=== PATIENT | female | born 1985 | race Caucasian/White ===

== ENCOUNTER 2018-05-15 18:01 | Emergency (ER) | payer OTHER, SELFPAY ==
[2018-05-15 18:18] VITALS: BP 129/96; PULSE 95; RESP 15; TEMP 36.8; O2SAT 98; BMI 33.2
--- NOTE | 2018-05-15 18:21 | DI.RAD.S_ITS ---
PROCEDURE: XR RIBS RT MIN 3V W CXR 1V INDICATIONS: fell onto right ribs TECHNIQUE: 2 views of the right ribs were acquired, along with a single view chest. COMPARISON: None. FINDINGS: Surgical changes and devices: None. Bones and chest wall: No fractures or dislocations. No suspicious bony lesions. Overlying soft tissues appear unremarkable. Lungs and pleura: No pleural effusions or pneumothorax. Lungs appear clear. Mediastinum: Mediastinal contours appear normal. Heart size is normal. IMPRESSION: No obvious displaced right rib fracture. No acute cardiopulmonary pathology. Dictated by: Bradley Gonzalez M.D. on 05/15/2018 at 19:00 Approved by: Bradley Gonzalez M.D. on 05/15/2018 at 19:00
--- NOTE | 2018-05-15 18:44 | ED_ITS ---
HPI - Fall General Chief Complaint: Fall Stated Complaint: FELL CRACK RIB RT SIDE Time Seen by Provider: 05/15/18 18:37 Source: patient Mode of arrival: ambulatory Limitations: no limitations History of Present Illness HPI Narrative: patient is a 33-year-old female who presents with right rib pain. She says she slipped and fell if this morning in the bathroom and landed on the toilet. It hurts every time she breathes moves. She did take some Tylenol earlier in the day as for pain but it did not help. MD complaint: fall Onset (ago): hour(s) Fall from: standing Fall witnessed: no Place fall occurred: home Loss of consciousness: none Prolonged down time: no Location of injury: chest Related Data Previous Rx's Medication Instructions Recorded tramadol 50 mg PO Q4-6H PRN #14 tab 05/15/18 Allergies Allergy/AdvReac Type Severity Reaction Status Date / Time No Known Drug Allergies Allergy Verified 05/15/18 18:18 Review of Systems Review of Systems ROS Unobtainable: All systems reviewed & are unremarkable except as noted in HPI and below Constitutional Denies chills, Denies fever(s), Denies lethargy and Denies weakness Cardiovascular Reports chest pain ( Right-sided), Denies irregular heart rhythm, Denies l ightheadedness, Denies palpitations and Denies orthopnea Respiratory Reports as per HPI and Reports pain on inspiration ( right side) Gastrointestinal Gastrointestinal: Denies abdominal pain, Denies change in bowel habits, Denies diarrhea, Denies nausea and Denies vomiting Musculoskeletal Denies back pain, Denies muscle weakness, Denies numbness and Denies tingling Integumentary/Breasts Denies pruritus, Denies erythema, Denies rash and Denies wounds Neurologic Denies numbness, Denies tingling and Denies weakness Endocrine Denies palpitations Exam Initial Vital Signs Initial Vital Signs: Vital Signs Temperature 98.2 F 05/15/18 18:18 Pulse Rate 95 H 05/15/18 18:18 Respiratory Rate 15 05/15/18 18:18 Blood Pressure 129/96 H 05/15/18 18:18 Pulse Oximetry 98 05/15/18 18:18 GENERAL: Patient appears in pain and bracing and splinting the right lower ribs. HEENT: Head atraumatic,EOMI, Neck is supple no vertebral tenderness CARDIOVASCULAR: Regular rate and rhythm without murmurs, rubs or gallops. RESPIRATORY: Breath sounds equal bilaterally, no wheezes rales or rhonchi. tender right lower rib 10 11 area no contusion no erythema. ABDOMEN: Soft, nontender. Normoactive bowel sounds all 4 quadrants. No guarding or rebound. EXTREMITIES: Normal range of motion, no clubbing or edema. Neurovascularly intact NEUROLOGICAL: Alert and oriented x4 SKIN: Warm, dry, no laceration, no petechiae, no rashes or lesions. [facility], [facility] Medical History Blood clotting disorder (Acute) History of multiple miscarriages (Acute) Social History Smoking Status: Current every day smoker Social History Smoking Status: Current every day smoker Course Orders Ordered: ED Orders 05/15/18 18:21 XR ribs RT min 3V w CXR1V Stat Discontinued Medications Ketorolac Tromethamine (Toradol) 60 mg IM NOW ONE Stop: 05/15/18 18:45 Last Admin: 05/15/18 19:01 Dose: 60 mg Vital Signs - 8 hr 05/15/18 18:18 05/15/18 19:39 Temperature 98.2 F 98.0 F Pulse Rate 95 H 82 Respiratory Rate 15 17 Blood Pressure 129/96 H Blood Pressure [Left Arm] 136/90 Pulse Oximetry 98 97 MDM - Fall Imaging Data rib XR: Radiologist's impression: PROCEDURE: XR RIBS RT MIN 3V W CXR 1V INDICATIONS: fell onto right ribs TECHNIQUE: 2 views of the right ribs were acquired, along with a single view chest. COMPARISON: None. FINDINGS: Surgical changes and devices: None. Bones and chest wall: No fractures or dislocations. No suspicious bony lesions. Overlying soft tissues appear unremarkable. Lungs and pleura: No pleural effusions or pneumothorax. Lungs appear clear. Mediastinum: Mediastinal contours appear normal. Heart size is normal. IMPRESSION: No obvious displaced right rib fracture. No acute cardiopulmonary pathology. Dictated by: Bradley Gonzalez M.D. on 05/15/2018 at 19:00 MDM Narrative Medical decision making narrative: X-ray does not show any fracture although patient is quite tender I suspect slight fracture. pain is slightly better after Toradol. She says that she does do well tramadol. Discharge Plan Departure Patient Disposition: Home Clinical Impression: Contusion of rib on right side Qualifiers: Encounter type: initial encounter Qualified Code(s): S20.211A - Contusion of right front wall of thorax, initial encounter Discharge Date/Time: 05/15/18 19:55 Interventions: ED Discharge Assessment Last Done: 05/15/18 20:09 Instructions: DI for Rib Contusion Activity Restrictions/Additional Instructions: *You have been diagnosed with right rib contusion *What to do: I do suspect possible of slight fracture just not seen on x-ray. New pillow to help splint for pain. Increase activity as tolerated. This can take 4-6 weeks to heal. *Continue to take medications as directed Motrin 600 mg every 6 hr only if needed for pain tramadol 1-2 tabs every 6 hr if needed for severe pain *Follow up with your primary care provider in 2-3 days *Return to ER if you should have increasing pain, shortness of breath, or any new, worsening or concerning symptoms Prescriptions: New tramadol 50 mg tablet 50 mg PO Q4-6H PRN (Reason: pain) Qty: 14 RF: 0
[2018-05-15] MEDS: KETOROLAC 60 MG/2 ML VIAL IM (19:01)
[2018-05-15 19:39] VITALS: BP 136/90; PULSE 82; RESP 17; TEMP 36.7; O2SAT 97
== END 2018-05-15 19:55 | disposition home or self-care (01) ==
PROVIDERS: Emergency Provider Emergency Medicine
DX: S20.211A Contusion of right front wall of thorax, initial encounter (principal); W01.0XXA Fall on same level from slipping, tripping and stumbling without subsequent striking against object, initial encounter
CPT/HCPCS: 71101; 96372; 99283; J1885

== ENCOUNTER 2020-01-22 21:24 | Emergency (ER) | payer OTHER, SELFPAY ==
[2020-01-22 21:35] VITALS: BP 144/78; PULSE 91; RESP 17; TEMP 37; O2SAT 99; BMI 32.5
[2020-01-22] MEDS: AMOXICILLIN/CLAV 875/125 MG 1 TAB PO (22:56)
--- NOTE | 2020-01-22 23:03 | PC.NURSE ---
Saw a white spot on front lower gums, pressed it and white drainage came out. Has history of dental issues after quitting smoking 4 months ago.
--- NOTE | 2020-01-23 01:44 | ED_ITS ---
HPI - Dental/Oral General Chief complaint: Dental/Oral Stated complaint: possible tooth abscess exploded Time Seen by Provider: 01/22/20 21:51 Source: patient Mode of arrival: Ambulatory Limitations: no limitations History of Present Illness HPI Narrative: 34F smoker with former history of smoking presents with a chief complaint of low were gum swelling and drainage of foul tasting, purulence material consistent with draining abscess. Patient denies any trouble swallowing, facial swelling nor systemic findings such as fever, chills nor nausea or vomiting. She denies any injury. She states that she has recently been in contact with a manager process improvement. She states that she started having dental problems soon as she stops smoking, which was very recently. Related Data Previous Rx's Medication Instructions Recorded tramadol 50 mg PO Q4-6H PRN #14 tab 05/15/18 amoxicillin-pot clavulanate 1 tab PO BID #20 tab 01/22/20 [Augmentin] Allergies Allergy/AdvReac Type Severity Reaction Status Date / Time No Known Drug Allergies Allergy Verified 05/15/18 18:18 Review of Systems Constitutional Constitutional: Denies chills, Denies fatigue, Denies fever(s), Denies frequent falls, Denies lethargy and Denies weakness Eyes Eyes: Denies change in vision, Denies eye discharge, Denies irritation and Denies loss of vision ENT Ears, Nose, Mouth, and Throat: Reports bleeding gums, Denies change in voice, Reports dental pain, Denies dizziness, Denies neck pain, Denies sore throat and Denies throat swelling Cardiovascular Cardiovascular: Denies chest pain, Denies irregular heart rhythm, Denies lightheadedness, Denies palpitations, Denies dyspnea, Denies dyspnea on exertion and Denies orthopnea Respiratory Respiratory: Denies cough, Denies dyspnea, Denies dyspnea on exertion and Denies wheezing Gastrointestinal Gastrointestinal: Denies abdominal pain, Denies change in bowel habits, Denies diarrhea, Denies nausea and Denies vomiting Musculoskeletal Musculoskeletal: Denies neck pain and Denies numbness Integumentary/Breasts Skin/Breast: Denies pruritus, Denies erythema, Denies rash and Denies wounds Neurologic Neurologic: Denies behavioral changes, Denies confusion, Denies dizziness, Denies frequent falls, Denies loss of vision, Denies numbness and Denies weakness Psychiatric Psychiatric: Denies anxiety, Denies behavioral changes, Denies confusion, Denies depression, Denies homicidal ideation and Denies suicidal ideation Endocrine Endocrine: Denies fatigue, Denies flushing and Denies palpitations Hematologic/Lymphatic Hematologic/Lymphatic: Denies easy bruising Allergic/Immunologic Allergic/Immunologic: Denies urticaria, Denies throat swelling and Denies wheezing Patient History Medical History Blood clotting disorder (Acute) History of multiple miscarriages (Acute) Social History Smoking Status: Former smoker Smoking Status: Former smoker alcohol intake frequency: holidays/special occasions only Substance Use Type: does not use Exam Narrative Exam Narrative: GEN: AOx3 and in mild distress HEAD: No facial swelling EYES: Pupils are equal, round, and reactive to light and accommodation. Extraoccular muscles are intact bilaterally. There is no subconjunctival hemorrhage or exudate. ENT: swelling anterior to tooth 23 wish spontaneous purulent drainage CHEST: Lungs are clear to auscultation bilaterally and free of wheezes, rales, or rhonchi. Heart rate is regular rhythm, there are no murmurs, clicks, rubs, or gallops. There is no chest wall tenderness. ABD: Abdomen is soft and nontender. There is no guarding or rebound. Bowel sounds are normal in all 4 quadrants. There is no mass or organomegaly. EXT: Full painless ROM of all extremities with no loss of sensation or strength. SKIN: Warm, pink, and dry. No erythema or rash Initial Vital Signs Initial Vital Signs: Vital Signs Temperature 98.6 F 01/22/20 21:35 Pulse Rate 91 H 01/22/20 21:35 Respiratory Rate 17 01/22/20 21:35 Blood Pressure 144/78 H 01/22/20 21:35 Pulse Oximetry 99 01/22/20 21:35 Course Orders Ordered: Discontinued Medications Amoxicillin/Clavulanate Potassium (Augmentin 875-125 Mg) 1 tab PO NOW ONE Stop: 01/22/20 22:53 Last Admin: 01/22/20 22:56 Dose: 1 tab Documented by: TRINH Vital Signs Vital signs: Vital Signs - 8 hr 01/22/20 21:35 Temperature 98.6 F Pulse Rate 91 H Respiratory Rate 17 Blood Pressure 144/78 H Pulse Oximetry 99 Discharge Plan Departure Patient Disposition: Home Clinical Impression: Dental abscess Discharge Date/Time: 01/22/20 23:00 Instructions: Tooth Abscess Activity Restrictions/Additional Instructions: *You have been diagnosed with [dental abscess with spontaneous drainage] *What to do: *Take medications as directed *Follow up with your dentist in 2-3 days, call for an appointment. Let them know you were seen in the Emergency Department and that we ask that you be seen in follow up *Return to ER if you should have any new, worsening or concerning symptoms Prescriptions: New amoxicillin-pot clavulanate [Augmentin] 875-125 mg tablet 1 tab PO BID Qty: 20 RF: 0 No Action tramadol 50 mg tablet 50 mg PO Q4-6H PRN (Reason: pain) Qty: 14 RF: 0
== END 2020-01-22 23:00 | disposition home or self-care (01) ==
PROVIDERS: Emergency Provider Emergency Medicine
DX: K04.7 Periapical abscess without sinus (principal)
CPT/HCPCS: 99283

== ENCOUNTER → 2022-01-05 10:08 | Outpatient (CLI) | payer OTHER, SELFPAY | PROVIDERS: Family Provider Family Medicine; PCP Family Medicine; Referring Provider Family Medicine; Visit Provider Family Medicine | DX: G56.01 Carpal tunnel syndrome, right upper limb (principal) | CPT/HCPCS: 95886; 95912 ==

== ENCOUNTER 2022-10-15 04:20 | Emergency (ER) | payer SELFPAY ==
--- NOTE | 2022-10-15 04:38 | PC.NURSE ---
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
[2022-10-15 04:42] VITALS: BP 104/64; PULSE 86; RESP 16; TEMP 36.3; O2SAT 100; BMI 22.4
[2022-10-15 05:06] LABS: Add Manual Diff / Slide Review NO; Basophils Absolute Auto 0 /uL (0-100); Basophils Percent Auto 0.2 % (0-2); Eosinophils Absolute Auto 100 /uL (0-450); Eosinophils Percent Auto 0.5 % (2-4); Hematocrit 39.3 % (36-46); Hemoglobin 13.3 g/dL (12.0-16.0); Lymphocytes Absolute Auto 1500 /uL (1100-4500); Lymphocytes Percent Auto 9.9 % (25-40); Mean Corpuscular HGB Conc 33.8 % (30-36); Mean Corpuscular Hemoglobin 30.3 PG (26-34); Mean Corpuscular Volume 89.7 fL (80-100); Monocytes Absolute Auto 1000 /uL (0-900); Monocytes Percent Auto 6.9 % (3-14); Neutrophils Absolute Auto 12200 /uL (1500-7000); Neutrophils Percent Auto 82.5 % (50-75); Platelet Count 462 X10^3/uL (150-400); Red Blood Cell Count 4.39 X10^6/uL (4.0-5.2); Red Cell Distribution Width 14.1 % (11.6-14.8); White Blood Cell Count 14.8 X10^3/uL (4.5-11.0)
[2022-10-15 05:10] LABS: Alanine Aminotransferase 75 IU/L (<35); Albumin Globulin Ratio 1.2 (1.0-2.8); Alkaline Phosphatase 66 U/L (38-126); Aspartate Aminotransferase 104 IU/L (14-36); BUN Creatinine Ratio 23.2 (6-22); Bilirubin Total 0.3 mg/dL (0.2-1.3); Blood Urea Nitrogen 16 mg/dL (7-17); Calcium 8.6 mg/dL (8.4-10.2); Carbon Dioxide 24 mmol/L (22-32); Chloride 106 mmol/L (98-107); Estimated Glomerular Filt Rate > 60 mL/min (>60); Globulin 3.4 g/dL (1.7-4.1); Glucose 96 mg/dL (70-100); HEMOLYSIS < 15 (0-50); Lipase 214 U/L (23-300); Potassium 4.1 mmol/L (3.4-5.1); Sodium 136 mmol/L (137-145); Total Protein 7.4 g/dL (6.3-8.2)
--- NOTE | 2022-10-15 06:09 | ED_ITS ---
HPI - General Adult <Missy Webb MD - Last Filed: 10/16/22 03:40> General Chief complaint: Abdominal Pain Stated complaint: Nausea, Vomitting, ABD pain Time Seen by Provider: 10/15/22 06:09 Source: patient Mode of arrival: Ambulatory History of Present Illness HPI narrative: 37-year-old woman with a history of prior cholecystectomy, right carpal tunnel syndrome presents with severe abdominal pain right upper quadrant to the epigastrium radiating through to her back starting at 9:00 p.m. associated with nausea and vomiting. She was able to sleep for a few hours at work her again at 1:00 a.m. with severe pain and she presents for further evaluation. Related Data Previous Rx's Medication Instructions Recorded tramadol 50 mg tablet 50 mg PO Q4-6H PRN pain #14 tabs 05/15/18 amoxicillin 875 mg-potassium 1 tab PO BID #20 tabs 01/22/20 clavulanate 125 mg tablet (Augmentin) omeprazole 40 mg capsule,delayed 40 mg PO DAILY #30 caps 10/15/22 release tramadol 50 mg tablet 50 mg PO Q6H PRN pain #10 tabs 10/15/22 Allergies Allergy/AdvReac Type Severity Reaction Status Date / Time No Known Drug Allergies Allergy Verified 05/15/18 18:18 Review of Systems <Missy Webb MD - Last Filed: 10/16/22 03:40> Review of Systems Narrative: Pertinent positive and negative findings as per HPI Patient History <Missy Webb MD - Last Filed: 10/16/22 03:40> Medical History (Updated 10/15/22 @ 08:31 by Maryjo Stone DO) Blood clotting disorder History of multiple miscarriages Social History Smoking Status: Former smoker Smoking Status: Former smoker alcohol intake frequency: holidays/special occasions only Substance Use Type: does not use Exam <Missy Webb MD - Last Filed: 10/16/22 03:40> Initial Vital Signs Initial Vital Signs: Vital Signs Temperature 97.4 F L 10/15/22 04:42 Pulse Rate 86 10/15/22 04:42 Respiratory Rate 16 10/15/22 04:42 Blood Pressure 104/64 10/15/22 04:42 Pulse Oximetry 100 10/15/22 04:42 Oxygen Delivery Method Room Air 10/15/22 04:42 General: Appears uncomfortable but Able to give a complete and coherent history. Well-nourished well-developed HEENT: Moist mucous membranes, normal sclera with reactive pupils, Neck: No JVD, supple Respiratory: Lungs are clear to auscultation, no wheezing no rales no rhonchi. Full and symmetrical air movement Cardiac: Regular rate and rhythm no murmurs no bruits Abdomen: Soft, nontender palpation in the right upper quadrants, no rebound or guarding good bowel tones, no flank pain Skin: Warm and dry, no rashes Neurologic: Grossly neurologically intact with no obvious asymmetries or abnormalities Extremities: No trauma, well perfused Psych: Cooperative, appropriate insight and affect <Maryjo Stone DO - Last Filed: 10/15/22 13:18> Initial Vital Signs Initial Vital Signs: Vital Signs Temperature 97.4 F L 10/15/22 04:42 Pulse Rate 86 10/15/22 04:42 Respiratory Rate 16 10/15/22 04:42 Blood Pressure 104/64 10/15/22 04:42 Pulse Oximetry 100 10/15/22 04:42 Oxygen Delivery Method Room Air 10/15/22 04:42 Course <Missy Webb MD - Last Filed: 10/16/22 03:40> Orders Ordered: Discontinued Medications Hydromorphone HCl (Hydromorphone 0.5 Mg Inj) 0.5 mg IV Q15MIN PRN PRN Reason: Pain, Last Admin: 10/15/22 06:25 Dose: 0.5 mg Documented By: ZO Sodium Chloride (Normal Saline 0.9%) 1,000 mls @ 1,000 mls/hr IV BOLUS ONE Stop: 10/15/22 07:17 Last Infusion: 10/15/22 07:37 Dose: 0 mls/hr Documented By: Admin: 10/15/22 06:27 Dose: 1,000 mls/hr Documented By: ZO Ketorolac Tromethamine (Ketorolac 30 Mg/Ml Vial) 15 mg IV NOW ONE Stop: 10/15/22 08:32 Last Admin: 10/15/22 08:41 Dose: 15 mg Documented By: ANKITA Ondansetron HCl (Ondansetron 4 Mg/2 Ml Inj) 4 mg IV NOW PRN PRN Reason: Nausea And Vomiting Ondansetron HCl (Ondansetron 4 Mg Odt) 4 mg PO NOW PRN PRN Reason: Nausea And Vomiting Ondansetron HCl (Ondansetron 4 Mg/2 Ml Inj) 4 mg IV NOW ONE Stop: 10/15/22 06:19 Last Admin: 10/15/22 06:25 Dose: 4 mg Documented By: ZO Pantoprazole Sodium (Pantoprazole 40 Mg Vial) 40 mg IV NOW ONE Stop: 10/15/22 08:32 Last Admin: 10/15/22 08:41 Dose: 40 mg Documented By: ANKITA Vital Signs Vital signs: Vital Signs - 8 hr 10/15/22 07:42 10/15/22 09:13 Temperature 98.6 F Pulse Rate 85 80 Respiratory Rate 14 20 Blood Pressure 95/61 100/86 Pulse Oximetry 99 100 Oxygen Delivery Method Room Air Room Air <Maryjo Stone, - Last Filed: 10/15/22 13:18> Orders Ordered: Discontinued Medications Hydromorphone HCl (Hydromorphone 0.5 Mg Inj) 0.5 mg IV Q15MIN PRN PRN Reason: Pain, Last Admin: 10/15/22 06:25 Dose: 0.5 mg Documented By: ZO Sodium Chloride (Normal Saline 0.9%) 1,000 mls @ 1,000 mls/hr IV BOLUS ONE Stop: 10/15/22 07:17 Last Infusion: 10/15/22 07:37 Dose: 0 mls/hr Documented By: Admin: 10/15/22 06:27 Dose: 1,000 mls/hr Documented By: ZO Ketorolac Tromethamine (Ketorolac 30 Mg/Ml Vial) 15 mg IV NOW ONE Stop: 10/15/22 08:32 Last Admin: 10/15/22 08:41 Dose: 15 mg Documented By: ANKITA Ondansetron HCl (Ondansetron 4 Mg/2 Ml Inj) 4 mg IV NOW PRN PRN Reason: Nausea And Vomiting Ondansetron HCl (Ondansetron 4 Mg Odt) 4 mg PO NOW PRN PRN Reason: Nausea And Vomiting Ondansetron HCl (Ondansetron 4 Mg/2 Ml Inj) 4 mg IV NOW ONE Stop: 10/15/22 06:19 Last Admin: 10/15/22 06:25 Dose: 4 mg Documented By: ZO Pantoprazole Sodium (Pantoprazole 40 Mg Vial) 40 mg IV NOW ONE Stop: 10/15/22 08:32 Last Admin: 10/15/22 08:41 Dose: 40 mg Documented By: MPO Vital Signs Vital signs: Vital Signs - 8 hr 10/15/22 07:42 10/15/22 09:13 Temperature 98.6 F Pulse Rate 85 80 Respiratory Rate 14 20 Blood Pressure 95/61 100/86 Pulse Oximetry 99 100 Oxygen Delivery Method Room Air Room Air Medical Decision Making <Missy Webb MD - Last Filed: 10/16/22 03:40> Lab Data 10/15/22 04:50 10/15/22 04:50 Labs: Lab Results 10/15/22 10/15/22 10/15/22 Range/Units 04:50 04:50 04:50 WBC 14.8 H (4.5-11.0) X10^3/uL RBC 4.39 (4.0-5.2) X10^6/uL Hgb 13.3 (12.0-16.0) g/dL Hct 39.3 (36-46) % MCV 89.7 (80-100) fL MCH 30.3 (26-34) PG MCHC 33.8 (30-36) % RDW 14.1 (11.6-14.8) % Plt Count 462 H (150-400) X10^3/uL Neut % (Auto) 82.5 H (50-75) % Lymph % (Auto) 9.9 L (25-40) % Schleicher % (Auto) 6.9 (3-14) % Eos % (Auto) 0.5 L (2-4) % Baso % (Auto) 0.2 (0-2) % Neut # (Auto) 76620 H (8431-2111) /uL Lymph # (Auto) 1500 (8820-4825) /uL Schleicher # (Auto) 1000 H (0-900) /uL Eos # (Auto) 100 (0-450) /uL Baso # (Auto) 0 (0-100) /uL Sodium 136 L (137-145) mmol/L Potassium 4.1 (3.4-5.1) mmol/L Chloride 106 (98-107) mmol/L Carbon Dioxide 24 (22-32) mmol/L BUN 16 (7-17) mg/dL Creatinine 0.69 (0.52-1.04) mg/dL Estimated GFR > 60 (>60) mL/min BUN/Creatinine Ratio 23.2 H (6-22) Glucose 96 (70-100) mg/dL Calcium 8.6 (8.4-10.2) mg/dL Total Bilirubin 0.3 (0.2-1.3) mg/dL AST 104 H (14-36) IU/L ALT 75 H (<35) IU/L Alkaline Phosphatase 66 (38-126) U/L Total Protein 7.4 (6.3-8.2) g/dL Albumin 4.0 (3.5-5.0) g/dL Globulin 3.4 (1.7-4.1) g/dL Albumin/Globulin Ratio 1.2 (1.0-2.8) Lipase 214 (23-300) U/L Urine Color Yellow Urine Appearance Slightly cloudy Urine pH 6.0 (4.5-8.0) Ur Specific [place] 1.025 (1.000-1.035) Urine Protein Negative (Negative) Urine Glucose (UA) Negative (Negative) g/dL Urine Ketones Negative (NEGATIVE) Urine Occult Blood Trace-intact (Negative) Urine Nitrate Negative (Negative) Urine Bilirubin Negative (NEGATIVE) Urine Urobilinogen 0.2 (0.2) E.U./dL Ur Leukocyte Esterase Negative (NEGATIVE) Urine RBC 0-1/hpf (0-5/HPF) Urine WBC 0-1/hpf (0-5/HPF) Ur Squamous Epith Cells 0-1 /hpf (0-5/HPF) Calcium Oxalate Crystal Few H Urine Bacteria Few (2-10) H (None) Ur Culture Indicated? Cult not indicated Point of Care Testing Test Results Negative Urine Dip Bedside Urine Glucose Negative Bedside Urine Bilirubin - Negative Bedside Urine Ketone - Negative Urine Specific [place] 1.025 Bedside Urine Occult Blood - Negative Bedside Urine pH 6.0 Bedside Urine Protein - Negative Bedside Urine Urobilinogen - Negative Bedside Urine Nitrite - Negative Bedside Urine Leukocytes - Negative Esterase Point of care testing: Point of Care Testing Test Results Negative Urine Dip Bedside Urine Glucose Negative Bedside Urine Bilirubin - Negative Bedside Urine Ketone - Negative Urine Specific [place] 1.025 Bedside Urine Occult Blood - Negative Bedside Urine pH 6.0 Bedside Urine Protein - Negative Bedside Urine Urobilinogen - Negative Bedside Urine Nitrite - Negative Bedside Urine Leukocytes - Negative Esterase MDM Narrative Medical decision making narrative: CC: Acute onset right upper quadrant abdominal pain with nausea and vomiting. This is acute uncertain prognosis Complicating co-morbidities: Prior cholecystectomy Data collected from: patient, partner Medical records reviewed: ER notes from prior visits are reviewed no other medical records are available Differential considered: Common bile duct stone, ascending cholangitis, perforating ulcer, constipation Exam documented above, pertinent findings include: Complaints of significant abdominal pain without reproducible pain on palpation Lab Test results independently reviewed as above. Pertinent findings: CBC has a mild leukocytosis at 14.8 with left shift. Thrombocytosis with platelets at 462 normal H&H. Chemistries are relatively unremarkable. Bilirubin and alk-phos are normal, AST and ALT are slightly elevated Lipase is within normal limits Independently reviewed EKG Sinus rhythm at a rate of 85. Normal intervals, normal axis. No acute ischemic changes Imaging studies independently reviewed: Consultations: Treatments: Re-evaluations: Discussion: <Maryjo Stone, DO - Last Filed: 10/15/22 13:18> Lab Data Labs: Lab Results 10/15/22 10/15/22 10/15/22 Range/Units 04:50 04:50 04:50 WBC 14.8 H (4.5-11.0) X10^3/uL RBC 4.39 (4.0-5.2) X10^6/uL Hgb 13.3 (12.0-16.0) g/dL Hct 39.3 (36-46) % MCV 89.7 (80-100) fL MCH 30.3 (26-34) PG MCHC 33.8 (30-36) % RDW 14.1 (11.6-14.8) % Plt Count 462 H (150-400) X10^3/uL Neut % (Auto) 82.5 H (50-75) % Lymph % (Auto) 9.9 L (25-40) % Schleicher % (Auto) 6.9 (3-14) % Eos % (Auto) 0.5 L (2-4) % Baso % (Auto) 0.2 (0-2) % Neut # (Auto) 48333 H (1793-9532) /uL Lymph # (Auto) 1500 (8716-6461) /uL [place]leicher # (Auto) 1000 H (0-900) /uL Eos # (Auto) 100 (0-450) /uL Baso # (Auto) 0 (0-100) /uL Sodium 136 L (137-145) mmol/L Potassium 4.1 (3.4-5.1) mmol/L Chloride 106 (98-107) mmol/L Carbon Dioxide 24 (22-32) mmol/L BUN 16 (7-17) mg/dL Creatinine 0.69 (0.52-1.04) mg/dL Estimated GFR > 60 (>60) mL/min BUN/Creatinine Ratio 23.2 H (6-22) Glucose 96 (70-100) mg/dL Calcium 8.6 (8.4-10.2) mg/dL Total Bilirubin 0.3 (0.2-1.3) mg/dL AST 104 H (14-36) IU/L ALT 75 H (<35) IU/L Alkaline Phosphatase 66 (38-126) U/L Total Protein 7.4 (6.3-8.2) g/dL Albumin 4.0 (3.5-5.0) g/dL Globulin 3.4 (1.7-4.1) g/dL Albumin/Globulin Ratio 1.2 (1.0-2.8) Lipase 214 (23-300) U/L Urine Color Yellow Urine Appearance Slightly cloudy Urine pH 6.0 (4.5-8.0) Ur Specific [place] 1.025 (1.000-1.035) Urine Protein Negative (Negative) Urine Glucose (UA) Negative (Negative) g/dL Urine Ketones Negative (NEGATIVE) Urine Occult Blood Trace-intact (Negative) Urine Nitrate Negative (Negative) Urine Bilirubin Negative (NEGATIVE) Urine Urobilinogen 0.2 (0.2) E.U./dL Ur Leukocyte Esterase Negative (NEGATIVE) Urine RBC 0-1/hpf (0-5/HPF) Urine WBC 0-1/hpf (0-5/HPF) Ur Squamous Epith Cells 0-1 /hpf (0-5/HPF) Calcium Oxalate Crystal Few H Urine Bacteria Few (2-10) H (None) Ur Culture Indicated? Cult not indicated Point of Care Testing Test Results Negative Urine Dip Bedside Urine Glucose Negative Bedside Urine Bilirubin - Negative Bedside Urine Ketone - Negative Urine Specific [place] 1.025 Bedside Urine Occult Blood - Negative Bedside Urine pH 6.0 Bedside Urine Protein - Negative Bedside Urine Urobilinogen - Negative Bedside Urine Nitrite - Negative Bedside Urine Leukocytes - Negative Esterase Point of care testing: Point of Care Testing Test Results Negative Urine Dip Bedside Urine Glucose Negative Bedside Urine Bilirubin - Negative Bedside Urine Ketone - Negative Urine Specific [place] 1.025 Bedside Urine Occult Blood - Negative Bedside Urine pH 6.0 Bedside Urine Protein - Negative Bedside Urine Urobilinogen - Negative Bedside Urine Nitrite - Negative Bedside Urine Leukocytes - Negative Esterase Imaging Data CT scan - abdomen/pelvis: Radiologist's Impression: Close Abdomen/Pelvis CT (Signed) Bradley Gonzalez - 10/15/22 Launch?[address] [address] [address] Scan Report Signed Patient: Lucero Alcaraz MR#: [id number] : 1985 Acct:[id number] Age/Sex: 37 / F Date of Service: 10/15/22 Loc: ED Accession Number: [id number] ?? Procedure: CT abdomen pelvis w con Ordering Provider: Missy Webb MD PROCEDURE:? CT ABDOMEN PELVIS W CON ? INDICATIONS:? RUQ pain ? TECHNIQUE:? After the administration of oral and IV contrast, axial sections were acquired from the lung bases to the pubic symphysis.? Coronal and sagittal reformats were performed.? For radiation dose reduction, the following was used:? automated exposure control, adjustment of mA and/or kV according to patient size. ? COMPARISON:? None. ? FINDINGS:? Image quality:? Excellent.? ? Lung bases:? Unremarkable.? ? Heart:? No significant findings. ? ? ABDOMEN: Liver:? Unremarkable.? ? Gallbladder:? Gallbladder is surgically absent. Biliary ducts:? Unremarkable.? ? Pancreas:? Unremarkable.? ? Spleen:? Unremarkable.? ? Adrenal Glands:? Unremarkable.? ? Kidneys and Ureters:? Nonobstructing left renal calculus measures 2 x 4 mm in size is seen.? Bilateral renal cortical cysts are noted measures up to 1.3 cm in size in midpole right kidney.? No hydronephrosis or hydroureter. ? Stomach and Bowel:? Stomach, small bowel loops, and colon are unremarkable.? Mild fecal stasis in the colon is noted. Peritoneum:? No abnormal intraperitoneal fluid.? No free air.? ? Ventral Wall: ? No hernia.? Abdominal Nodes:? No retroperitoneal or mesenteric adenopathy by size criteria.? Vessels:? Aorta and inferior vena cava are normal in size.? ? PELVIS: Pelvic Organs:? Heterogeneously enhancing myometrium is noted which may represent uterine fibroids.? Fluid is noted within endometrium. Bladder:? Unremarkable.? ? Pelvic Nodes: No enlarged lymph nodes.? Miscellaneous: No inguinal hernias are seen. ? ? ? Bones:? No suspicious bony lesions.? No acute vertebral body compression fracture. ? ? IMPRESSION:? ? 1. No bowel obstruction or abnormal bowel wall thickening.? No abscess collection.? No free fluid or free air. ? 2. Nonobstructing stone in left kidney.? Renal cysts as above.? No hydronephrosis or hydroureter. ? 3. Prior cholecystectomy. ? 4. Heterogeneously enhancing uterine myometrium which could represent small uterine fibroids versus adenomyosis.? Outpatient follow-up is recommended. ? No significant discrepancies from preliminary reading.? ? ? Dictated by: Bradley Gonzalez M.D. on 10/15/2022 at 8:34 ? ? Approved by: Bradley Gonzalez M.D. on 10/15/2022 at 8:37?? MDM Narrative Medical decision making narrative: CC: Acute onset right upper quadrant abdominal pain with nausea and vomiting. This is acute uncertain prognosis Complicating co-morbidities: Prior cholecystectomy Data collected from: patient, partner Medical records reviewed: ER notes from prior visits are reviewed no other medical records are available Differential considered: Common bile duct stone, ascending cholangitis, perforating ulcer, constipation Exam documented above, pertinent findings include: Complaints of significant abdominal pain without reproducible pain on palpation Lab Test results independently reviewed as above. Pertinent findings: CBC has a mild leukocytosis at 14.8 with left shift. Thrombocytosis with platelets at 462 normal H&H. Chemistries are relatively unremarkable. Bilirubin and alk-phos are normal, AST and ALT are slightly elevated Lipase is within normal limits Independently reviewed EKG Sinus rhythm at a rate of 85. Normal intervals, normal axis. No acute ischemic changes Imaging studies independently reviewed: Consultations: Treatments: Re-evaluations: Discussion: Bertha 10/15/22 Mank: Patient signed out to myself by Dr. Monson patient was seen independently evaluated by myself. Labs were reviewed by myself mild leukocytosis 14.8, platelets of 462 normal hemoglobin hematocrit, chemistries liver enzymes show slight elevation AST ALT lipase normal. Patient CT abdomen pelvis ordered which was pending shows small nonobstructing midpole stone in the left, simple appearing right renal cyst patient has had prior cholecystectomy. Heterogeneous appearance of uterine myometrium nonspecific be small fibroids or adenomyosis. Patient was re-evaluated had improvement of her symptoms with medication here but still somewhat uncomfortable. States feels similar to when she had her gallbladder out right upper quadrant pain. She does take Excedrin daily, reviewed her findings from today need for follow-up patient felt appropriate for discharge. She is not having any persistent emesis pain is improved. We will give a prescription for omeprazole daily to see if this improves her symptoms and short course of pain medication. We did discuss follow up with General surgery if symptoms are improving possibly EGD and/or further imaging of her biliary system. We did review return precautions. All questions answered. Patient and family feel comfortable with this plan. Discharge Plan Departure Patient Disposition: Home Clinical Impression: Renal cyst, Abdominal pain Instructions: DI for Abdominal Pain-Adult Activity Restrictions/Additional Instructions: Please follow up with general surgery or gastroenterology if you are having persistent symptoms. Your imaging does not show any clear cause of your pain, you do have a renal cyst and possibly some fibroids but no obvious source of your pain. Take omeprazole once daily x 30 days. If you are having persistent symptoms I would stop or decrease your Excedrin usage and see if this is helpful. You may take tramadol 1-2 tablets every 6 hours as needed for pain. This med ication can make you sleepy do not drive, perform hazardous activities or make any major decisions while taking it. This medication will make you constipated please take a stool softener once to twice daily until stools are soft and regular. Prescription sent to [email or web address] in [place] Please return for rapidly worsening symptoms, fevers, persistent vomiting, new shortness of breath, chest pain, black or bloody stools, lightheadedness or passing out or other new or concerning changes. Prescriptions: New omeprazole 40 mg capsule,delayed release(DR/EC) 40 mg PO DAILY Qty: 30 0RF tramadol 50 mg tablet 50 mg PO Q6H PRN (Reason: pain) Qty: 10 0RF No Action tramadol 50 mg tablet 50 mg PO Q4-6H PRN (Reason: pain) Qty: 14 0RF amoxicillin-pot clavulanate [Augmentin] 875-125 mg tablet 1 tab PO BID Qty: 20 0RF Referrals: Antoine Weeks MD [Primary Care Provider] - Stand Alone Forms: Patient Portal/API
--- NOTE | 2022-10-15 06:18 | DI.CT.S_ITS ---
PROCEDURE: CT ABDOMEN PELVIS W CON INDICATIONS: RUQ pain TECHNIQUE: After the administration of oral and IV contrast, axial sections were acquired from the lung bases to the pubic symphysis. Coronal and sagittal reformats were performed. For radiation dose reduction, the following was used: automated exposure control, adjustment of mA and/or kV according to patient size. COMPARISON: None. FINDINGS: Image quality: Excellent. Lung bases: Unremarkable. Heart: No significant findings. ABDOMEN: Liver: Unremarkable. Gallbladder: Gallbladder is surgically absent. Biliary ducts: Unremarkable. Pancreas: Unremarkable. Spleen: Unremarkable. Adrenal Glands: Unremarkable. Kidneys and Ureters: Nonobstructing left renal calculus measures 2 x 4 mm in size is seen. Bilateral renal cortical cysts are noted measures up to 1.3 cm in size in midpole right kidney. No hydronephrosis or hydroureter. Stomach and Bowel: Stomach, small bowel loops, and colon are unremarkable. Mild fecal stasis in the colon is noted. Peritoneum: No abnormal intraperitoneal fluid. No free air. Ventral Wall: No hernia. Abdominal Nodes: No retroperitoneal or mesenteric adenopathy by size criteria. Vessels: Aorta and inferior vena cava are normal in size. PELVIS: Pelvic Organs: Heterogeneously enhancing myometrium is noted which may represent uterine fibroids. Fluid is noted within endometrium. Bladder: Unremarkable. Pelvic Nodes: No enlarged lymph nodes. Miscellaneous: No inguinal hernias are seen. Bones: No suspicious bony lesions. No acute vertebral body compression fracture. IMPRESSION: 1. No bowel obstruction or abnormal bowel wall thickening. No abscess collection. No free fluid or free air. 2. Nonobstructing stone in left kidney. Renal cysts as above. No hydronephrosis or hydroureter. 3. Prior cholecystectomy. 4. Heterogeneously enhancing uterine myometrium which could represent small uterine fibroids versus adenomyosis. Outpatient follow-up is recommended. No significant discrepancies from preliminary reading. Dictated by: Bradley Gonzalez M.D. on 10/15/2022 at 8:34 Approved by: Bradley Gonzalez M.D. on 10/15/2022 at 8:37
[2022-10-15] MEDS: HYDROMORPHONE 0.5 MG INJ IV (06:25)
[2022-10-15] MEDS: ONDANSETRON 4 MG/2 ML INJ IV (06:25)
[2022-10-15] MEDS: SODIUM CHLORIDE 0.9% 1,000 ML 1000 ML IV (06:27)
[2022-10-15 06:49] LABS: Bilirubin Urine UA NEGATIVE (NEGATIVE); Color Urine UA YELLOW; Glucose Urine UA NEGATIVE (Negative); Ketones Urine UA NEGATIVE (NEGATIVE); Leukocyte Esterase Urine UA NEGATIVE (NEGATIVE); Nitrite Urine UA NEGATIVE (Negative); Occult Blood Urine UA TRACE-INTACT (Negative); Protein Urine UA NEGATIVE (Negative); Specific Gravity Urine UA 1.025 (1.000-1.035); Urobilinogen Urine UA 0.2 E.U./dL (0.2)
[2022-10-15 06:50] LABS: Appearance Urine UA Slightly Cloudy
[2022-10-15 06:58] LABS: RBC Urine 0-1/HPF (0-5/HPF)
[2022-10-15 06:59] LABS: Bacteria Urine Few (2-10); Calcium Oxalate Crystals Urine Few; Culture Indicated Urine Cult Not Indicated; Squamous Epithelial Cell Urine 0-1 /HPF (0-5/HPF); WBC Urine 0-1/HPF (0-5/HPF)
[2022-10-15 07:42] VITALS: BP 95/61; PULSE 85; RESP 14; O2SAT 99
[2022-10-15] MEDS: PANTOPRAZOLE 40 MG VIAL IV (08:41)
[2022-10-15] MEDS: KETOROLAC 30 MG/ML VIAL 15 MG IV (08:41)
[2022-10-15 09:13] VITALS: BP 100/86; PULSE 80; RESP 20; TEMP 37; O2SAT 100
== END 2022-10-15 09:05 | disposition home or self-care (01) ==
PROVIDERS: Emergency Medicine; Emergency Provider Emergency Medicine; Family Provider Family Medicine; PCP Family Medicine
DX: R10.11 Right upper quadrant pain (principal); N28.1 Cyst of kidney, acquired
CPT/HCPCS: 36415; 74177; 80053; 81001; 81003; 81025; 83690; 85025; 93005; 96374; 96375; 99284; C9113; J1170; J1885; J2405; Q9967